=== PATIENT | female | born 1950 | race Caucasian/White ===

== ENCOUNTER → 2016-05-28 | Outpatient (CLI) | payer BC ==
[~2016-05-28] MED LIST: CALC600T9 PO; LATA0.009 OPB; MELO7.5T5 PO; METO25TA3 PO; MULT-506 PO; ONDA4TAB46 PO; RANI150T2 PO; ROPI0.5T PO; VALA1TAB31 PO
--- NOTE | 2016-05-28 12:57 | DIAGNOSTIC IMAGING REPORT ---
BILATERAL CAROTID DOPPLER STUDY HISTORY: Mental status change LIGHTHEADEDNESS COMPARISON: None. TECHNIQUE: Real-time, grayscale, and color Doppler sonography of the carotid arteries was performed. Imaging reviewed in the transverse and longitudinal planes. All measurements were calculated based on NASCET criteria. FINDINGS: Antegrade flow is seen in the bilateral vertebral arteries. The brachial pressures are hemodynamically similar. Minimal plaque formation bilaterally. The peak systolic velocity within the right ICA is 98. The right systolic ratio is 1.0. The peak systolic velocity within the left ICA is 99. The left systolic ratio is 1.3. IMPRESSION: No hemodynamically significant stenosis seen within the carotid arteries. Minimal plaque dimension bilaterally Electronically signed by: Jesús Penny M.D. 05/28/2016 12:55 PM Dictated Date/Time: 05/28/2016 12:54 PM
== END | disposition home or self-care (01) ==
LOC: C.ULTRBC 12:10
PROVIDERS: ATTEND Physician Assistant Medical
DX: R42 Dizziness and giddiness (principal)

== ENCOUNTER → 2017-06-09 | Outpatient (CLI) | payer OTHER ==
[~2017-06-09] MED LIST changes: -ONDA4TAB46 PO
== END | disposition home or self-care (01) ==
LOC: C.LABBC 12:25
PROVIDERS: ATTEND Internal Medicine
DX: R35.0 Frequency of micturition (principal)

== ENCOUNTER → 2017-06-22 | Outpatient (CLI) | payer OTHER | END | disposition home or self-care (01) | LOC: C.LAB 08:49 | PROVIDERS: ATTEND Physician Assistant Medical | DX: R39.9 Unspecified symptoms and signs involving the genitourinary system (principal) ==